=== PATIENT | male | born 1950 | race Caucasian/White ===

== ENCOUNTER 2016-12-17 06:15 | Observation (INO) | payer OTHER ==
[~2016-12-17 06:15] MED LIST: DEXAMETHASONE 10 MG/ML VIAL IVP ONE; ceFAZolin 2 GM/DEXTROSE 100 ML IV ONE
[2016-12-17] MEDS ORDERED: LIDO/EPI 1% **Not for Epidural 20 ML MDV ONE (06:52)
[2016-12-17] MEDS ORDERED: MIDAZOLAM 2 MG/2 ML VIAL ONE (06:59)
[2016-12-17] MEDS ORDERED: PROPOFOL 200 MG/20 ML VIAL ONE ×3 (07:03→08:49)
[2016-12-17] MEDS ORDERED: LIDOCAINE 1% 2 ML INJ ONE (07:05)
[2016-12-17] MEDS ORDERED: fentaNYL 100 MCG/2 ML INJ ONE ×3 (07:07→10:17)
[2016-12-17] MEDS ORDERED: LIDOCAINE 1% 5 ML SDV ID PRN (07:22)
[2016-12-17] MEDS ORDERED: LR 1,000 ML IV ONE (07:22)
[2016-12-17] MEDS ORDERED: ONDANSETRON 4 MG/2 ML VIAL IVP PRN (10:08)
[2016-12-17] MEDS ORDERED: D5W 1/2 NS W/ 20 KCl/L 1,000 ML IV SCH (10:15)
[2016-12-17] MEDS ORDERED: HYDROmorphONE/DILAUDID 2 MG/ML INJ ONE (10:17)
--- NOTE | 2016-12-17 11:19 | GOP ---
[f rep st] OPERATIVE REPORT DATE OF OPERATION: 12/17/2016 SURGEON: Ludin Thomas MD NEUROPSYCHIATRIST: Roque Reddy MD. ANESTHESIA: General. PREOPERATIVE DIAGNOSIS: Right thyroid goiter. POSTOPERATIVE DIAGNOSIS: Right thyroid goiter. PROCEDURE PERFORMED: Right thyroid lobectomy. FINDINGS: Large right thyroid lobe, both solid and cystic. The size was approximately 10 x 8 x 7 c m. It was smaller at the time of excision due to the spontaneous leakage of a significant amount of fluid during its excision. The recurrent laryngeal nerve was identified and preserved. SPECIMENS: Right thyroid lobe. ESTIMATED BLOOD LOSS: Less than 75 cc. INDICATIONS: The patient is a 66-year-old man with a large right thyroid goiter. Needle biopsy was benign; however, given the size of the mass and the presence of some compressive symptoms, he prese nts for right thyroid lobectomy. DESCRIPTION OF PROCEDURE: Patient was taken to the OR and positively identified, placed on monitors , and general anesthesia was induced. The patient was then prepped and draped in the normal sterile fashion. An incision line was marked out on an anterior neck skin crease and infiltrated with 3 cc of 1% lidocaine with 1:100,000 epinephrine. The skin was then sharply incised. Dissection was car ried down through the platysma. Superior and inferior subplatysmal flaps were then raised and secur ed with 2-0 silk stay sutures. The strap muscles were divided in the midline. The right strap musc les were elevated off the right thyroid lobe. Dissection was carried along in a meticulous fashion up to the superior vascular pedicle, tying off vessels as needed. The superior vascular pedicle was isolated, clamped, cut, and ligated with a 2-0 silk stick tie. Dissection was then carried along t he capsule inferiorly, tying off the middle thyroid vein. Blunt dissection was then carried around the surface of the capsule and it was delivered from the wound, allowing me to then tie off more ves sels that were coming in laterally and inferiorly using 3-0 and 2-0 silk as needed. The recurrent l aryngeal nerve was identified. Meticulous dissection was carried along the thyroid capsule down to Hernandez's ligament, which was then divided. The thyroid lobe was swept off the trachea. The isthmus was crossclamped and oversewn with 3-0 Vicryl. The specimen was then sent for pathologic evaluation . The wound was irrigated with sterile saline. Meticulous hemostasis was achieved and a 10-Sami round silicone drain was placed through a separate stab incision and secured to the skin with a drai n stitch. The wound was then closed using interrupted Vicryl to reapproximate the strap muscles, 4- 0 Monocryl for the platysma and subcutaneous tissues, and a running locked 5-0 Prolene to the skin, followed by a pressure dressing. Dr. Roque Reddy was present and scrubbed throughout the entire procedure. His assistance was cri tical and necessary for the safe completion of the operation. At this point, the patient's anesthet ic was discontinued. He was extubated and taken to postop care in a good condition, having tolerate d the procedure well. COMPLICATIONS: None. /[id number]/MODL
[2016-12-17] MEDS: OXYCODONE/APAP 5/325 TAB PO PRN ×2 (13:19→15:32)
--- NOTE | 2016-12-17 18:18 | SOAPPROG ---
SOAP Progress Note Assessment/Plan: Assessment: Pt doing well. The percocet has not helped much. Will try ibuprofen. Plan: Likely discharge tomorrow. 12/17/16 18:14 Subjective: Pt overall feeling good. Some likd discomfort below both ears. Objective: Vital Signs Temp Pulse Resp BP Pulse Ox 36.6 C 93 14 130/81 H 93 12/17/16 16:00 12/17/16 16:00 12/17/16 16:00 12/17/16 16:00 12/17/16 16:00 12/16/16 12/17/16 12/18/16 05:59 05:59 05:59 Intake Total 1000 Output Total 120 Balance 880 Pt in the communal room at the end of the brar , eating. He has some pain below the ears bilateral. Voive normal. Neckflat. ICD10 Worksheet Patient Problems: Problems Problem Status Onset Goiter Acute - ICD10 Problem Qualifiers (1) Goiter
[2016-12-17] MEDS: IBUPROFEN 600 MG TAB PO PRN (18:31)
[2016-12-17 20:18] VITALS: RESP 18
[2016-12-18] MEDS: IBUPROFEN 600 MG TAB PO PRN ×2 (00:31→06:37)
[2016-12-18 07:57] VITALS: BP 135/72; PULSE 87; TEMP 98.1; O2SAT 97
[2016-12-18] MEDS ORDERED: DOCUSATE SODIUM 100 MG CAP PO SCH (09:00)
--- NOTE | 2016-12-18 09:42 | SOAPPROG ---
SOAP Progress Note Assessment/Plan: pt s/p hemithyroidectomy. Doing well. No hoarseness. mild pain. o:- dressing and drain removed. new dressing applied. Plan: pt s/p hemithyroidecotmy. Doing well. discussed post op care. f/u next week for suture removal. 12/18/16 09:40 Objective: Vital Signs Temp Pulse Resp BP Pulse Ox 36.7 C 87 18 135/72 H 97 12/18/16 07:56 12/18/16 07:56 12/18/16 07:56 12/18/16 07:56 12/18/16 07:56 12/17/16 12/18/16 12/19/16 05:59 05:59 05:59 Intake Total 2400 Output Total 880 Balance 1520 ICD10 Worksheet Patient Problems: Problems Problem Status Onset Goiter Acute
== END 2016-12-18 10:23 | disposition home or self-care (01) ==
LOC: INTOOBSV 06:15 → F3E 06:15 → PREOBSVTOIN 10:32 → F3E 11:05
PROVIDERS: ADMIT Otolaryngology; ATTEND Otolaryngology
PROC: 0GTH0ZZ Resection of Right Thyroid Gland Lobe, Open Approach (ICD-10-PCS; principal; 2016-12-17 07:30)
DX: E04.9 Nontoxic goiter, unspecified (principal)
CPT/HCPCS: 60220; J0690; J1170; J2250; J2704; J3010